=== PATIENT | female | born 1975 | race Caucasian/White ===

== ENCOUNTER 2024-02-07 19:18 | Emergency (ER) | payer OTHER ==
[~2024-02-07] VITALS: Ht 162.6 cm; Wt 68.0 kg
[2024-02-07 19:27] VITALS: O2SAT 99
[2024-02-07] MEDS: ACETAMINOPHEN 500MG TABLET PO ONE (20:15)
[2024-02-07 21:42] VITALS: BP 153/91; PULSE 98; RESP 16; TEMP 36.78072; O2SAT 98
== END 2024-02-07 22:53 ==
LOC: ER 19:18
DX: R51.9 Headache, unspecified (principal); F41.9 Anxiety disorder, unspecified; F31.9 Bipolar disorder, unspecified; Z98.890 Other specified postprocedural states
CPT/HCPCS: 70486; 99285